=== PATIENT | female | born 1965 | race American Indian/Alaskan Native ===

== ENCOUNTER 2016-10-21 06:59 | Inpatient (IN) | payer MEDICAID ==
[2016-10-10 10:55] VITALS: BMI 56.5
[2016-10-21] MEDS ORDERED: Lactated Ringer's 1,000 ML IV ONE ×2 (09:45→12:00)
[2016-10-21] MEDS ORDERED: ceFAZolin IV 1 gm in Dextrose 100 ML IVPB ONE (09:46)
[2016-10-21] MEDS ORDERED: Bupivacaine HCl 0.25% PF (10 ml) Inj ONE (09:47)
[2016-10-21] MEDS ORDERED: Rocuronium 10 mg/ml (5 ml) ONE (11:04)
[2016-10-21] MEDS ORDERED: Succinylcholine Chloride 20 mg/ml Syr (5 ml) IV ONE (11:04)
[2016-10-21] MEDS ORDERED: Albuterol 0.083% Inhal Sol (2.5 mg/3 mL) UD INH PRN (12:54)
[2016-10-21] MEDS ORDERED: Naloxone 0.4 mg/ml Inj (Adult) IVP PRN (12:56)
[2016-10-21] MEDS ORDERED: Morphine Monoject Barrel PCA 1mg/ml IV PRN (12:56)
[2016-10-21] MEDS ORDERED: Albuterol HFA 90 mcg/actuation (8 g) IH PRN (14:01)
[2016-10-21] MEDS: HYDROmorphone 0.5 mg/0.5 ml ISec IVP PRN ×2 (14:10→15:40)
[2016-10-21] MEDS: Lactated Ringer's 1,000 ML IV SCH ×2 (17:00→22:45)
[2016-10-22 01:29] VITALS: RESP 20
[2016-10-22] MEDS: Lactated Ringer's 1,000 ML IV SCH (02:27)
[2016-10-22 07:41] LABS: LYMPH # 1.4 K/uL (1.0-4.3); MEAN PLATELET VOLUME 8.6 fL (7.2-11.7); MONO # 0.7 K/uL (0.0-0.8)
[2016-10-22 07:44] LABS: CHLORIDE 102 mmol/L (98-107); POTASSIUM 4.1 mmol/L (3.6-5.2); SODIUM 139 mmol/L (132-148)
[2016-10-22 07:46] LABS: GFR AFRICAN-AMERICAN > 60
[2016-10-22 07:47] LABS: ALB/GLOB RATIO 1.1 (1.0-2.1); ALKALINE PHOSPHATASE 75 U/L (38-126); ALT/SGPT 17 U/L (9-52); AST/SGOT 20 U/L (14-36); BILIRUBIN,TOTAL 0.2 mg/dL (0.2-1.3); BLOOD UREA NITROGEN 13 mg/dL (7-17); CALCIUM 8.5 mg/dl (8.6-10.4); CARBON DIOXIDE 24 mmol/L (22-30); GLUCOSE,RANDOM 139 mg/dL (65-105); TOTAL PROTEIN 6.4 g/dL (6.3-8.3)
[2016-10-22 07:51] LABS: BASO % 0.1 % (0.0-2.0); HEMATOCRIT 32.2 % (34.0-47.0); LYMPH % 12.2 % (20.0-40.0); MEAN CELL VOLUME 74.4 fL (81.0-99.0); MEAN CORPUSCULAR HEMOGLOBIN 22.6 pg (27.0-31.0); MEAN CORPUSCULAR HGB CONC 30.4 g/dL (33.0-37.0); MONO % 6.1 % (0.0-10.0); RED CELL DISTRIBUTION WIDTH 20.9 % (11.5-14.5)
[2016-10-22 07:54] LABS: WHITE BLOOD COUNT 11.5 K/uL (4.8-10.8)
[2016-10-22] MEDS ORDERED: Oxycodone/Acetaminophen 5/325 mg Tab PO PRN (08:28)
[2016-10-22] MEDS ORDERED: Morphine 4 MG/ML VIAL IVP PRN (08:29)
[2016-10-22] MEDS ORDERED: Pneumococcal 23-Valent Vaccine IM ONE (10:00)
[2016-10-22] MEDS ORDERED: Enoxaparin 40 mg Syringe SC SCH (10:00)
--- NOTE | 2016-10-22 14:20 | CP.PCM.PN ---
<Nicole Metzger - Last Filed: 10/22/16 14:17> Subjective - Date & Time of Evaluation Date of Evaluation: 10/22/16 Time of Evaluation: 14:17 - Subjective Subjective: Surgery: Dr. Pacheco Patient doing very well today. Pain controlled. Tolerating diet. Denies SOB/CP. Per nursing report, no acute events overnight. Objective - Vital Signs/Intake and Output Vital Signs (last 24 hours): Temp Pulse Resp BP Pulse Ox 97.8 F 74 20 117/72 97 10/22/16 07:30 10/22/16 07:30 10/22/16 07:30 10/22/16 07:30 10/22/16 07:30 Intake and Output: 10/22/16 10/22/16 06:59 18:59 Intake Total 2145 Output Total 450 Balance 1695 - Medications Medications: Current Medications Albuterol (Ventolin Hfa 90 Mcg/Actuation (8 G)) 2 puff IH RQ6 PRN PRN Reason: Shortness of Breath Albuterol Sulfate (Albuterol 0.083% Inhal Yadira (2.5 Mg/3 Ml) Ud) 2.5 mg INH RQ6 PRN PRN Reason: Wheezing Docusate Sodium (Colace) 100 mg PO BID [facility] Last Admin: 10/22/16 10:02 Dose: 100 mg Ferrous Sulfate (Feosol) 325 mg PO BID [facility] Last Admin: 10/22/16 10:02 Dose: 325 mg Heparin Sodium (Porcine) (Heparin) 5,000 units SC Q8 [facility] Last Admin: 10/22/16 14:09 Dose: 5,000 units Cefazolin Sodium 2 gm/ (Dextrose) 50 mls @ 100 mls/hr IVPB ONCE [facility] Last Admin: 10/21/16 15:55 Dose: 50 mls Morphine Sulfate (Morphine) 4 mg IVP Q4 PRN PRN Reason: Pain, severe (8-10) Last Admin: 10/22/16 08:54 Dose: 4 mg Ondansetron HCl (Zofran Inj) 4 mg IVP Q4 PRN PRN Reason: Nausea/Vomiting Oxycodone/Acetaminophen (Percocet 5/325 Mg Tab) 1 tab PO Q4H PRN PRN Reason: Pain, moderate (4-7) Stop: 10/25/16 08:29 Oxycodone/Acetaminophen (Percocet 5/325 Mg Tab) 2 tab PO Q4H PRN PRN Reason: Pain, severe (8-10) Stop: 10/25/16 08:29 - Labs Labs: 10/22/16 07:17 10/22/16 07:17 - Constitutional Appears: Non-toxic, No Acute Distress - Head Exam Head Exam: ATRAUMATIC, NORMOCEPHALIC - Eye Exam Eye Exam: EOMI, Normal appearance - ENT Exam ENT Exam: Mucous Membranes Moist - Respiratory Exam Respiratory Exam: NORMAL BREATHING PATTERN. absent: Respiratory Distress Additional comments: Dressing CDI. 2 [place] drains 70cc and 80cc total output. - Cardiovascular Exam Cardiovascular Exam: REGULAR RHYTHM. absent: Tachycardia - Extremities Exam Extremities Exam: Normal Inspection. absent: Calf Tenderness Assessment and Plan - Assessment and Plan (Free Text) Assessment: 51 y/o F s/p left modified radical mastectomy POD1 Plan: -cont drains -possible d/c home today -patient w/ undefined hypercoagulable state. conversation w/ Heme/Onc physician in [place] this am. States she has not been in office since 2013 but has been taking Pradaxa since evaluation. She primarily sees PCP for management now who plans to transition to Warfarin in the future. -Will have heme/onc evaluate patient while in house to determine appropriate restart of home Pradaxa -would like to hold Pradaxa until 10/23/2016, then resume -cont current managment at this time -d/w Dr. Pacheco [facility] PGY1 <Anup Pacheco - Last Filed: 10/22/16 16:22> Objective - Vital Signs/Intake and Output Vital Signs (last 24 hours): Temp Pulse Resp BP Pulse Ox 97.8 F 72 20 129/87 97 10/22/16 15:28 10/22/16 15:28 10/22/16 15:28 10/22/16 15:28 10/22/16 15:28 Intake and Output: 10/22/16 10/22/16 06:59 18:59 Intake Total 2145 Output Total 450 110 Balance 1695 -110 - Medications Medications: Current Medications Albuterol (Ventolin Hfa 90 Mcg/Actuation (8 G)) 2 puff IH RQ6 PRN PRN Reason: Shortness of Breath Albuterol Sulfate (Albuterol 0.083% Inhal Yadira (2.5 Mg/3 Ml) Ud) 2.5 mg INH RQ6 PRN PRN Reason: Wheezing Docusate Sodium (Colace) 100 mg PO BID [facility] Last Admin: 10/22/16 10:02 Dose: 100 mg Ferrous Sulfate (Feosol) 325 mg PO BID [facility] Last Admin: 10/22/16 10:02 Dose: 325 mg Heparin Sodium (Porcine) (Heparin) 5,000 units SC Q8 [facility] Last Admin: 10/22/16 14:09 Dose: 5,000 units Cefazolin Sodium 2 gm/ (Dextrose) 50 mls @ 100 mls/hr IVPB ONCE [facility] Last Admin: 10/21/16 15:55 Dose: 50 mls Morphine Sulfate (Morphine) 4 mg IVP Q4 PRN PRN Reason: Pain, severe (8-10) Last Admin: 10/22/16 08:54 Dose: 4 mg Ondansetron HCl (Zofran Inj) 4 mg IVP Q4 PRN PRN Reason: Nausea/Vomiting Oxycodone/Acetaminophen (Percocet 5/325 Mg Tab) 1 tab PO Q4H PRN PRN Reason: Pain, moderate (4-7) Stop: 10/25/16 08:29 Oxycodone/Acetaminophen (Percocet 5/325 Mg Tab) 2 tab PO Q4H PRN PRN Reason: Pain, severe (8-10) Stop: 10/25/16 08:29 - Labs Labs: 10/22/16 07:17 10/22/16 07:17 Attending/Attestation - Attestation I have personally seen and examined this patient.: Yes I have fully participated in the care of the patient.: Yes I have reviewed all pertinent clinical information, including history, physical exam and plan: Yes Notes (Text): 10/22/16 16:22 Pt was seen and examined at bedside on 10/22/16 Agree with above note and assessment. DC Plan Hematology consult Plan d.w pt in detail.
--- NOTE | 2016-10-22 16:32 | OP ---
PROCEDURE DATE: 10/21/2016 PREOPERATIVE DIAGNOSES: 1. Left breast cancer with axillary lymphadenopathy. 2. Morbid obesity with weight of 300 pounds. POSTOPERATIVE DIAGNOSES: 1. Left breast cancer with axillary lymphadenopathy. 2. Morbid obesity with weight of 300 pounds. PROCEDURE DONE: 1. Left modified radical mastectomy. 2. Excision of large amount of redundant skin Flaps and reconstruction ANESTHESIA: General endotracheal tube anesthesia. ESTIMATED BLOOD LOSS: Around 200 mL. DRAINS: A large two 19 latvian drain was placed in upper and lower flap. COMPLICATIONS: None. INTRAOPERATIVE FINDINGS: The patient had 2 tumors in the 10 o'clock and 3 o' clock position with axillary lymphadenopathy. Pt has large amount of redundant skin due to extremely large size of breast. INTRAOPERATIVE STEPS: This 51-year-old female was diagnosed with a left breast cancer and patient was consented for the left modified radical mastectomy. Brought to the OR, placed supine on the operating table. After induction of the anesthesia, the left breast and axilla and upper extremity was prepped and draped in the usual sterile fashion and a large elliptical incision was made. Upper and lower flap was created. The thickness of the flap was approximately 8 mm to 1 cm and medially the dissection was done up to the sternum, inferiorly up to the costal margin, superiorly up to the infraclavicular area and laterally up to the latissimus dorsi and the left breast was completely excised with underlying pectoral fascia and sent off the table for the pathology. Due to the extremely large size of the breast as well as the skin flaps, the procedure was divided into 2 steps and now the left axillary dissection was done and left axillary dissection was done. The medial and lateral dissection was done. The latissimus dorsi dissection was carried superiorly and the axillary vein was identified and the clavipectoral fascia was entered and Thoracodorsal bundle and nerve as well as long thoracic nerve was identified and all the fat with large amount of lymph node from the label 1 and label 2 was removed and sent off the table for the pathology. After proper wound irrigation, patient had a redundant large amount of extra skin that was excised and the skin was also sent for the pathology and now, the lateral flap was sutured with the thoracic wall and upper and lower flap was closed in 2 layers, the subQ with 2-0 Vicryl, skin with 4-0 Monocryl and dry sterile dressing was applied. The patient tolerated the procedure well. Count of instrument was good. There was no apparent complication. The drain for the lower flap as well as axilla was placed before closing the wound. The patient was extubated in OR, sent to the postanesthesia care unit in stable condition. Anup Pacheco MD cc: [id number] TT: 10/22/2016 16:32:08 sn MTDD
--- NOTE | 2016-10-22 18:06 | CP.PCM.CON ---
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 I have been asked to comment on the safe timing of her anticoagulation post mastectomy. The patient denies abnormal bleeding and bruising. She reports she has had 4-5 episodes of blood clots in her legs and lungs. There recurrent clots she was told to low INR while on coumadin and underwent IVC filter placement and a switch to Pradaxa. Past medical history: Recurrent venous clotting, breast cancer Past surgical history: left mastectomy Family history: Grandmother on both sides with breast cancer Social history: Denies tobacco, alcohol, and illiic drug use. Allergies: NKA Review of systems: All remaining review of systems including HEENT, cardiovascular, respiratory, gastrointestinal, genitourinary, musculoskeletal, dermatologic, neurologic, and psychiatric are negative unless mentioned in the HPI. Past Patient History - Past Medical History & Family History Past Medical History?: Yes - Past Social History Smoking Status: Never Smoked - CARDIAC Hx Hypertension: Yes Other/Comment: hx dvt to lungs - PULMONARY Hx Respiratory Disorders: Yes (sob on exertion) Hx Bronchitis: Yes Hx Pulmonary Embolism: Yes (2008 2010 2012) - NEUROLOGICAL Hx Neurological Disorder: No - HEENT Hx Cataracts: Yes (right) - RENAL Hx Chronic Kidney Disease: No - ENDOCRINE/METABOLIC Hx Endocrine Disorders: No - HEMATOLOGICAL/ONCOLOGICAL Hx Blood Disorders: Yes Hx Anemia: Yes Hx Cancer: Yes (left breast) - INTEGUMENTARY Hx Dermatological Problems: No - MUSCULOSKELETAL/RHEUMATOLOGICAL Hx Musculoskeletal Disorders: No - GASTROINTESTINAL Hx Gastrointestinal Disorders: No - GENITOURINARY/GYNECOLOGICAL Hx Genitourinary Disorders: No - PSYCHIATRIC Hx Psychophysiologic Disorder: No Hx Substance Use: No - SURGICAL HISTORY Hx Surgeries: Yes Hx Cataract Extraction: Yes Hx Vascular Surgery: Yes (vena cava filter) - ANESTHESIA Hx Anesthesia: Yes Hx Anesthesia Reactions: No Hx Malignant Hyperthermia: No Has any member of the family had a problem w/ anesthesia?: No Meds Home Medications: Home Medication List Medication Instructions Recorded Confirmed Type Dabigatran [Pradaxa] 75 mg PO DAILY #30 cap 10/22/16 Rx Docusate [Colace] 100 mg PO BID #60 cap 10/22/16 Rx oxyCODONE/Acetaminophen [Percocet 1 tab PO Q4H PRN #30 tab 10/22/16 Rx 5/325 mg Tab] Allergies/Adverse Reactions: Allergies Allergy/AdvReac Type Severity Reaction Status Date / Time No Known Allergies Allergy Verified 05/14/16 21:28 - Medications Medications: Current Medications Albuterol (Ventolin Hfa 90 Mcg/Actuation (8 G)) 2 puff IH RQ6 PRN PRN Reason: Shortness of Breath Albuterol Sulfate (Albuterol 0.083% Inhal Yadira (2.5 Mg/3 Ml) Ud) 2.5 mg INH RQ6 PRN PRN Reason: Wheezing Docusate Sodium (Colace) 100 mg PO BID [facility] Last Admin: 10/22/16 18:04 Dose: 100 mg Ferrous Sulfate (Feosol) 325 mg PO BID [facility] Last Admin: 10/22/16 18:04 Dose: 325 mg Heparin Sodium (Porcine) (Heparin) 5,000 units SC Q8 [facility] Last Admin: 10/22/16 14:09 Dose: 5,000 units Cefazolin Sodium 2 gm/ (Dextrose) 50 mls @ 100 mls/hr IVPB ONCE [facility] Last Admin: 10/21/16 15:55 Dose: 50 mls Morphine Sulfate (Morphine) 4 mg IVP Q4 PRN PRN Reason: Pain, severe (8-10) Last Admin: 10/22/16 08:54 Dose: 4 mg Ondansetron HCl (Zofran Inj) 4 mg IVP Q4 PRN PRN Reason: Nausea/Vomiting Oxycodone/Acetaminophen (Percocet 5/325 Mg Tab) 1 tab PO Q4H PRN PRN Reason: Pain, moderate (4-7) Stop: 10/25/16 08:29 Oxycodone/Acetaminophen (Percocet 5/325 Mg Tab) 2 tab PO Q4H PRN PRN Reason: Pain, severe (8-10) Stop: 10/25/16 08:29 Physical Exam - Head Exam Head Exam: ATRAUMATIC - Eye Exam Eye Exam: Normal appearance - ENT Exam ENT Exam: Mucous Membranes Dry - Respiratory Exam Respiratory Exam: NORMAL BREATHING PATTERN - Cardiovascular Exam Cardiovascular Exam: +S1, +S2 - GI/Abdominal Exam GI & Abdominal Exam: Normal Bowel Sounds - Extremities Exam Extremities exam: Positive for: normal inspection Results - Vital Signs Recent Vital Signs: Last Vital Signs Temp 97.8 F 10/22/16 15:28 Pulse 72 10/22/16 15:28 Resp 20 10/22/16 15:28 BP 129/87 10/22/16 15:28 Pulse Ox 97 10/22/16 15:28 - Labs Result Diagrams: 10/22/16 07:17 10/22/16 07:17 Labs: Laboratory Results - last 24 hr 10/22/16 07:17 WBC 11.5 H D RBC 4.32 Hgb 9.8 L Hct 32.2 L MCV 74.4 L MCH 22.6 L MCHC 30.4 L RDW 20.9 H Plt Count 243 MPV 8.6 Neut % (Auto) 81.6 H Lymph % (Auto) 12.2 L [place] % (Auto) 6.1 Eos % (Auto) 0.0 Baso % (Auto) 0.1 Neut # 9.3 H Lymph # 1.4 [place] # 0.7 Eos # 0.0 Baso # 0.0 Sodium 139 Potassium 4.1 Chloride 102 Carbon Dioxide 24 Anion Gap 18 BUN 13 Creatinine 0.6 L Est GFR ( Amer) > 60 Est GFR (Non-Af Amer) > 60 Random Glucose 139 H Calcium 8.5 L Total Bilirubin 0.2 AST 20 ALT 17 Alkaline Phosphatase 75 Total Protein 6.4 Albumin 3.3 L Globulin 3.1 Albumin/Globulin Ratio 1.1 Assessment & Plan (1) History of pulmonary embolism Assessment and Plan: with recurrent DVT has IVC filter recommend prophylactic dosing of anticoagualtion can restart pradaxa 2-3 days after surgery pt will require lifelong anticoagualtion given recurrent venous clotting Status: Acute (2) Anemia Assessment and Plan: will check ferritin, retic count, b12, folate, FOBT to further characterize Status: Acute (3) Breast cancer Assessment and Plan: f/u pathology for determination of adjuvant treatment Thank you for this interesting consult. Status: Acute
[2016-10-22] MEDS: Oxycodone/Acetaminophen 5/325 mg Tab PO PRN (20:53)
[2016-10-23] MEDS: Oxycodone/Acetaminophen 5/325 mg Tab PO PRN ×2 (07:00→17:52)
[2016-10-23 08:33] VITALS: O2SAT 94
[2016-10-23 08:33] LABS: RETIC% 1.7 % (0.5-1.5)
[2016-10-23 09:43] LABS: FOLATE 5.4 ng/mL
[2016-10-23 14:22] LABS: CHLORIDE 100 mmol/L (98-107); SODIUM 141 mmol/L (132-148)
[2016-10-23 14:25] LABS: BLOOD UREA NITROGEN 16 mg/dL (7-17); CARBON DIOXIDE 27 mmol/L (22-30); GFR AFRICAN-AMERICAN > 60; GLUCOSE,RANDOM 112 mg/dL (65-105)
[2016-10-23 14:26] LABS: CALCIUM 8.2 mg/dl (8.6-10.4)
[2016-10-23 14:31] LABS: BASO # 0.1 K/uL (0.0-0.2); BASO % 1.3 % (0.0-2.0); EOS % 0.5 % (0.0-4.0); HEMATOCRIT 31.7 % (34.0-47.0); LYMPH # 3.6 K/uL (1.0-4.3); LYMPH % 40.5 % (20.0-40.0); MEAN CELL VOLUME 74.4 fL (81.0-99.0); MEAN CORPUSCULAR HGB CONC 30.9 g/dL (33.0-37.0); MEAN PLATELET VOLUME 8.8 fL (7.2-11.7); MONO # 0.7 K/uL (0.0-0.8); NRBC % 0.2 % (0.0-2.0); RED CELL DISTRIBUTION WIDTH 20.9 % (11.5-14.5)
--- NOTE | 2016-10-23 14:35 | CP.PCM.CON ---
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 Patient claims to have had vaginal spotting a few days prior to arriving at the hospital for her mastectomy. Upon arrival she was taken off of Pradaxa for surgery and was placed on heparin. She then began having profuse bleeding. Patient states that her periods were regular from her 20s to her 30s but then began to be heavier once she got into her 40s and was on the anticoagulants. Patient at one time was on warfarin and then on xarelto but was ultimately placed on pradaxa. Patient states that her cycle was usually 28-30 days, with 3- 5 day long periods. Patient states that over the last 2 years in particular though her periods have been irregular, with them sometimes being normal for 3 months, then not coming for 2-3 months, then begin regular again for 5 months. Patient admits the last time she had a regular period was about April. Patient otherwise denies lower abdominal/pelvic pain/nausea/vomiting/shortness of breath/chest pain/palpitations. PMHx: HTN PSHx: Cataract surgery 1985, IVC Filter Allergies:NKDA Medications: Ferrous Sulfate Social: Denies alcohol/tobacco/drug use. FHx: FGM Breast cancer, MGM stomach cancer Review of Systems - Constitutional Constitutional: absent: Anorexia, Chills - EENT Eyes: absent: Blind Spots, Blurred Vision Ears: absent: Decreased Hearing, Ear Discharge Nose/Mouth/Throat: absent: Nasal Congestion, Nasal Discharge - Cardiovascular Cardiovascular: absent: Chest Pain, Diaphoresis - Respiratory Respiratory: absent: Cough, Hemoptysis - Gastrointestinal Gastrointestinal: Constipation. absent: Abdominal Pain, Nausea, Vomiting - Genitourinary Genitourinary: absent: Dysuria, Flank Pain - Reproductive: Female Reproductive:Female: Heavy Menses, Spotting Between Cycles - Menstruation Menstruation: Cycle Variable, Menses 1-7 Days, Cycle > 4 Weeks Between - Musculoskeletal Musculoskeletal: absent: Arthralgias, Atrophy - Integumentary Integumentary: absent: Pruritus, Rash - Neurological Neurological: absent: Headaches, Radicular Pain Past Patient History - Past Medical History & Family History Past Medical History?: Yes - Past Social History Smoking Status: Never Smoked Chewing Tobacco Use: No Cigar Use: No Alcohol: None Drugs: Denies - CARDIAC Hx Hypertension: Yes Other/Comment: hx dvt to lungs - PULMONARY Hx Respiratory Disorders: Yes (sob on exertion) Hx Bronchitis: Yes Hx Pulmonary Embolism: Yes (2008 2010 2012) - NEUROLOGICAL Hx Neurological Disorder: No - HEENT Hx Cataracts: Yes (right) - RENAL Hx Chronic Kidney Disease: No - ENDOCRINE/METABOLIC Hx Endocrine Disorders: No - HEMATOLOGICAL/ONCOLOGICAL Hx Blood Disorders: Yes Hx Anemia: Yes Hx Cancer: Yes (left breast) - INTEGUMENTARY Hx Dermatological Problems: No - MUSCULOSKELETAL/RHEUMATOLOGICAL Hx Musculoskeletal Disorders: No - GASTROINTESTINAL Hx Gastrointestinal Disorders: No - GENITOURINARY/GYNECOLOGICAL Hx Genitourinary Disorders: No - PSYCHIATRIC Hx Psychophysiologic Disorder: No Hx Substance Use: No - SURGICAL HISTORY Hx Surgeries: Yes Hx Cataract Extraction: Yes Hx Vascular Surgery: Yes (vena cava filter) - ANESTHESIA Hx Anesthesia: Yes Hx Anesthesia Reactions: No Hx Malignant Hyperthermia: No Has any member of the family had a problem w/ anesthesia?: No Meds Home Medications: Home Medication List Medication Instructions Recorded Confirmed Type Dabigatran [Pradaxa] 75 mg PO DAILY #30 cap 10/22/16 Rx Docusate [Colace] 100 mg PO BID #60 cap 10/22/16 Rx oxyCODONE/Acetaminophen [Percocet 1 tab PO Q4H PRN #30 tab 10/22/16 Rx 5/325 mg Tab] Allergies/Adverse Reactions: Allergies Allergy/AdvReac Type Severity Reaction Status Date / Time No Known Allergies Allergy Verified 05/14/16 21:28 - Medications Medications: Current Medications Albuterol (Ventolin Hfa 90 Mcg/Actuation (8 G)) 2 puff IH RQ6 PRN PRN Reason: Shortness of Breath Albuterol Sulfate (Albuterol 0.083% Inhal Yadira (2.5 Mg/3 Ml) Ud) 2.5 mg INH RQ6 PRN PRN Reason: Wheezing Docusate Sodium (Colace) 100 mg PO BID [facility] Last Admin: 10/23/16 09:29 Dose: 100 mg Ferrous Sulfate (Feosol) 325 mg PO BID [facility] Last Admin: 10/23/16 09:29 Dose: 325 mg Heparin Sodium (Porcine) (Heparin) 5,000 units SC Q8 [facility] Last Admin: 10/22/16 14:09 Dose: 5,000 units Cefazolin Sodium 2 gm/ (Dextrose) 50 mls @ 100 mls/hr IVPB ONCE [facility] Last Admin: 10/21/16 15:55 Dose: 50 mls Morphine Sulfate (Morphine) 4 mg IVP Q4 PRN PRN Reason: Pain, severe (8-10) Last Admin: 10/22/16 08:54 Dose: 4 mg Ondansetron HCl (Zofran Inj) 4 mg IVP Q4 PRN PRN Reason: Nausea/Vomiting Oxycodone/Acetaminophen (Percocet 5/325 Mg Tab) 1 tab PO Q4H PRN PRN Reason: Pain, moderate (4-7) Stop: 10/25/16 08:29 Oxycodone/Acetaminophen (Percocet 5/325 Mg Tab) 2 tab PO Q4H PRN PRN Reason: Pain, severe (8-10) Stop: 10/25/16 08:29 Last Admin: 10/23/16 07:00 Dose: 2 tab Physical Exam - Constitutional Additional comments: obese pleasant female - Head Exam Head Exam: ATRAUMATIC, NORMOCEPHALIC - Eye Exam Eye Exam: EOMI, PERRL Additional comments: right lateral strabismus - ENT Exam ENT Exam: Mucous Membranes Moist, Normal Oropharynx - Neck Exam Neck exam: Positive for: Full Rom. Negative for: Tenderness - Respiratory Exam Respiratory Exam: Clear to Auscultation Bilateral. absent: Rales, Rhonchi, Wheezes - Cardiovascular Exam Cardiovascular Exam: Gallop, RRR, +S1, +S2. absent: Rubs, Systolic Murmur - GI/Abdominal Exam GI & Abdominal Exam: Normal Bowel Sounds, Soft. absent: Distended, Tenderness - Extremities Exam Extremities exam: Positive for: normal capillary refill, pedal edema (+1), pedal pulses present. Negative for: calf tenderness, joint swelling, tenderness - Back Exam Back exam: absent: CVA tenderness (L), CVA tenderness (R), paraspinal tenderness , vertebral tenderness - Neurological Exam Neurological exam: Alert, CN II-XII Intact, Oriented x3 - Skin Skin Exam: Dry, Intact, Warm Results - Vital Signs Recent Vital Signs: Last Vital Signs Temp 97.6 F 10/23/16 08:32 Pulse 58 L 10/23/16 08:32 Resp 20 10/23/16 08:32 BP 121/85 10/23/16 08:32 Pulse Ox 94 L 10/23/16 08:32 - Labs Result Diagrams: 10/23/16 08:16 10/23/16 08:16 Labs: Laboratory Results - last 24 hr 10/23/16 08:16 Retic Count 1.7 H Ferritin 26.8 Vitamin B12 785 Folate 5.4 Assessment & Plan - Assessment and Plan (Free Text) Assessment: 51 year old female with a PMH of multiple DVTs and PEs who is POD #2 from left mastectomy on whom OBGYN was consulted for profuse vaginal bleeding. Plan: Profuse vaginal bleeding Will order transvaginal and pelvis US Will need to be placed back on Pradaxa given her extensive clotting history Patient was previously suggested to get hysterectomy and we discussed this option with patient Will follow ultrasounds Encouraged ambulation Patient was seen and examined and case was discussed in detail with Dr. Beaver. Thank you for allowing us to participate in the care of this interesting patient. - Date & Time Date: 10/23/16 Time: 14:00 <Simone Beaver - Last Filed: 10/23/16 16:58> History of Present Illness - History of Present Illness History of Present Illness: 51 yr admiited to [facility] for left mastectomy. pt c/o irrgular periods from few years. 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 pt was recommded for hystrectomy. pt moved and followed an obgyn in [place] in april. but nothing has mouna done. pt was placed on heparin on pod#0 and started having bleeding. no bleeding now. Pelvic sono 2.3 cm endometrium Meds - Medications Medications: Current Medications Albuterol (Ventolin Hfa 90 Mcg/Actuation (8 G)) 2 puff IH RQ6 PRN PRN Reason: Shortness of Breath Albuterol Sulfate (Albuterol 0.083% Inhal Yadira (2.5 Mg/3 Ml) Ud) 2.5 mg INH RQ6 PRN PRN Reason: Wheezing Dabigatran (Pradaxa) 75 mg PO DAILY [facility] Docusate Sodium (Colace) 100 mg PO BID [facility] Last Admin: 10/23/16 09:29 Dose: 100 mg Ferrous Sulfate (Feosol) 325 mg PO BID [facility] Last Admin: 10/23/16 09:29 Dose: 325 mg Cefazolin Sodium 2 gm/ (Dextrose) 50 mls @ 100 mls/hr IVPB ONCE [facility] Last Admin: 10/21/16 15:55 Dose: 50 mls Morphine Sulfate (Morphine) 4 mg IVP Q4 PRN PRN Reason: Pain, severe (8-10) Last Admin: 10/22/16 08:54 Dose: 4 mg Ondansetron HCl (Zofran Inj) 4 mg IVP Q4 PRN PRN Reason: Nausea/Vomiting Oxycodone/Acetaminophen (Percocet 5/325 Mg Tab) 1 tab PO Q4H PRN PRN Reason: Pain, moderate (4-7) Stop: 10/25/16 08:29 Oxycodone/Acetaminophen (Percocet 5/325 Mg Tab) 2 tab PO Q4H PRN PRN Reason: Pain, severe (8-10) Stop: 10/25/16 08:29 Last Admin: 10/23/16 07:00 Dose: 2 tab Physical Exam - Exam External exam: NORMAL EXTERNAL EXAM Speculum exam: NORMAL SPECULUM EXAM Bimanual exam: NORMAL BIMANUAL EXAM Results - Vital Signs Recent Vital Signs: Last Vital Signs Temp 97.6 F 10/23/16 08:32 Pulse 58 L 10/23/16 08:32 Resp 20 10/23/16 08:32 BP 121/85 10/23/16 08:32 Pulse Ox 94 L 10/23/16 08:32 - Labs Result Diagrams: 10/23/16 08:16 10/23/16 08:16 Labs: Laboratory Results - last 24 hr 10/23/16 08:16 WBC 9.0 RBC 4.26 Hgb 9.8 L Hct 31.7 L MCV 74.4 L MCH 23.0 L MCHC 30.9 L RDW 20.9 H Plt Count 237 MPV 8.8 Neut % (Auto) 49.7 L Lymph % (Auto) 40.5 H [place] % (Auto) 8.0 Eos % (Auto) 0.5 Baso % (Auto) 1.3 Neut # 4.5 Lymph # 3.6 [place] # 0.7 Eos # 0.0 Baso # 0.1 Retic Count 1.7 H Sodium 141 Potassium 4.0 Chloride 100 Carbon Dioxide 27 Anion Gap 18 BUN 16 Creatinine 0.6 L Est GFR ( Amer) > 60 Est GFR (Non-Af Amer) > 60 Random Glucose 112 H Calcium 8.2 L Ferritin 26.8 Vitamin B12 785 Folate 5.4 Assessment & Plan - Assessment and Plan (Free Text) Assessment: 51 yr with irrgular periods/h/o multiple clots/breast cancer s/p mastectomy Plan: no acute obgyn issues. follow up with obgyn as an out pateint. if no obgyn she can follow with Dr Barahona in clinic on friday for possible d&c, hystyerscopy. cont medicine/surgical management . Thank you for consulting - Date & Time Date: 10/23/16 Time: 16:30
--- NOTE | 2016-10-23 16:47 | US ---
HISTORY: profuse vaginal bleeding COMPARISON: Pelvic ultrasound performed 05/14/16 TECHNIQUE: Real-time transabdominal pelvic ultrasound was performed. In addition a transvaginal pelvic ultrasound was necessary to better depict pelvic anatomy FINDINGS: Examination limited by habitus. UTERUS: Measures 15.4 x 8.2 x 8.9 cm. Anteverted. ENDOMETRIUM: Measures 2.3 cm in diameter. CERVIX: Nabothian cyst. RIGHT OVARY: Not well-visualized. LEFT OVARY: Not well-visualized. FREE FLUID: No significant free fluid noted. OTHER FINDINGS: None. IMPRESSION: Enlarged uterus. Thickened endometrium. 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 Bilateral ovaries are not visualized.
[2016-10-23 16:57] VITALS: BP 124/77; PULSE 66; TEMP 97.4
--- NOTE | 2016-10-23 17:12 | PCM.SURG1 ---
Surgeon's Initial Post Op Note - Surgeon's Notes Surgeon: Dr. Pacheco Computer Installation Engineer: Dr. Pinto PGY-2, Haydee AYALA Type of Anesthesia: General Endo Pre-Operative Diagnosis: Left breast cancer w/ axillary lymphadenopathy Operative Findings: see operative report Post-Operative Diagnosis: Left breast cancer w/ axillary lymphadenopathy Operation Performed: Left modified radical mastectomy Specimen/Specimens Removed: left breast, level 1 and 2 axillary lymph nodes Estimated Blood Loss: EBL {In ML}: 200 Blood Products Given: N/A Drains Used: Milton (x2) Post-Op Condition: Fair Date of Surgery/Procedure: 10/21/16 Time of Surgery/Procedure: 09:00
--- NOTE | 2016-10-23 17:20 | CP.PCM.DIS ---
Provider - Provider Date of Admission: 10/21/16 13:56 Attending physician: Anup Pacheco MD Consults: Dr. Perez (hematology/oncology) Dr. Beaver (gynecology) Time Spent in preparation of Discharge (in minutes): 35 Diagnosis - Discharge Diagnosis (1) Breast cancer Status: Resolved Hospital Course - Lab Results Lab Results: Most Recent Lab Values WBC 9.0 K/uL (4.8-10.8) 10/23/16 08:16 RBC 4.26 Mil/uL (3.80-5.20) 10/23/16 08:16 Hgb 9.8 g/dL (11.0-16.0) L 10/23/16 08:16 Hct 31.7 % (34.0-47.0) L 10/23/16 08:16 MCV 74.4 fL (81.0-99.0) L 10/23/16 08:16 MCH 23.0 pg (27.0-31.0) L 10/23/16 08:16 MCHC 30.9 g/dL (33.0-37.0) L 10/23/16 08:16 RDW 20.9 % (11.5-14.5) H 10/23/16 08:16 Plt Count 237 K/uL (130-400) 10/23/16 08:16 MPV 8.8 fL (7.2-11.7) 10/23/16 08:16 Neut % (Auto) 49.7 % (50.0-75.0) L 10/23/16 08:16 Lymph % (Auto) 40.5 % (20.0-40.0) H 10/23/16 08:16 Fergus % (Auto) 8.0 % (0.0-10.0) 10/23/16 08:16 Eos % (Auto) 0.5 % (0.0-4.0) 10/23/16 08:16 Baso % (Auto) 1.3 % (0.0-2.0) 10/23/16 08:16 Neut # 4.5 K/uL (1.8-7.0) 10/23/16 08:16 Lymph # 3.6 K/uL (1.0-4.3) 10/23/16 08:16 Fergus # 0.7 K/uL (0.0-0.8) 10/23/16 08:16 Eos # 0.0 K/uL (0.0-0.7) 10/23/16 08:16 Baso # 0.1 K/uL (0.0-0.2) 10/23/16 08:16 Retic Count 1.7 % (0.5-1.5) H 10/23/16 08:16 Sodium 141 mmol/L (132-148) 10/23/16 08:16 Potassium 4.0 mmol/L (3.6-5.2) 10/23/16 08:16 Chloride 100 mmol/L (98-107) 10/23/16 08:16 Carbon Dioxide 27 mmol/L (22-30) 10/23/16 08:16 Anion Gap 18 (10-20) 10/23/16 08:16 BUN 16 mg/dL (7-17) 10/23/16 08:16 Creatinine 0.6 MG/DL (0.7-1.2) L 10/23/16 08:16 Est GFR ( Amer) > 60 10/23/16 08:16 Est GFR (Non-Af Amer) > 60 10/23/16 08:16 Random Glucose 112 mg/dL (65-105) H 10/23/16 08:16 Calcium 8.2 mg/dl (8.6-10.4) L 10/23/16 08:16 Ferritin 26.8 ng/mL 10/23/16 08:16 Total Bilirubin 0.2 mg/dL (0.2-1.3) 10/22/16 07:17 AST 20 U/L (14-36) 10/22/16 07:17 ALT 17 U/L (9-52) 10/22/16 07:17 Alkaline Phosphatase 75 U/L (38-126) 10/22/16 07:17 Total Protein 6.4 g/dL (6.3-8.3) 10/22/16 07:17 Albumin 3.3 g/dL (3.5-5.0) L 10/22/16 07:17 Globulin 3.1 gm/dL (2.2-3.9) 10/22/16 07:17 Albumin/Globulin Ratio 1.1 (1.0-2.1) 10/22/16 07:17 Vitamin B12 785 pg/mL (239-931) 10/23/16 08:16 Folate 5.4 ng/mL 10/23/16 08:16 - Hospital Course Hospital Course: 51yo F with 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 She presented to same day surgery and had a left modified radical mastectomy on 10/21/16. 2 Uriel drains were left. 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 Patient was placed on heparin and developed vaginal bleeding on POD#1 which resolved that evening. Heparin was held. Hematology/oncology was consulted to determine when best to restart Pradaxa. Dr. Perez recommended restarting pradaxa 2-3 days after surgery and that patient will require lifelong anticoagulation due to recurrent venous clotting. He ordered iron studies for her anemia. Dr. Perez recommended a gynecology consult. Transvaginal and pelvic US was done which showed enlarged uterus and thickened endometrium. Dr. Beaver recommended patient follow up outpatient for possible D&C and hysteroscopy. Patient had previously been recommended to have a hysterectomy by her previous diabetes manager. Discharge Exam - Head Exam Head Exam: ATRAUMATIC, NORMOCEPHALIC - Eye Exam Eye Exam: EOMI, Normal appearance - Respiratory Exam Respiratory Exam: NORMAL BREATHING PATTERN. absent: Respiratory Distress Additional comments: Left chest dressings clean/dry/intact [address] - Cardiovascular Exam Cardiovascular Exam: +S1, +S2 - GI/Abdominal Exam GI & Abdominal Exam: Soft. absent: Distended, Firm, Tenderness - Neurological Exam Neurological exam: Alert, CN II-XII Intact, Oriented x3 - Psychiatric Exam Psychiatric exam: Normal Affect, Normal Mood - Skin Skin Exam: Dry, Normal Color, Warm Discharge Plan - Discharge Medications Prescriptions: Docusate [Colace] 100 mg PO BID #60 cap oxyCODONE/Acetaminophen [Percocet 5/325 mg Tab] 1 tab PO Q4H PRN #30 tab PRN Reason: Pain, Moderate (4-7) Dabigatran [Pradaxa] 75 mg PO DAILY #30 cap - Follow Up Plan Condition: GOOD Disposition: HOME/ ROUTINE Instructions: Dabigatran (By mouth), Pardeep-Ariza Drain Care (DC), Mastectomy (DC) Additional Instructions: Leave dressing in place for 5 days. Keep dry. Then may remove top dressings but keep steri strips in place. They will fall off on their own over time. Follow up with Dr. Pacheco in 1 week. Monitor and record drain output. Empty as needed. He will remove drains in his office. Follow up with your equity director/oncologist. Follow up with your diabetes manager. If patient does not have one, can follow up in clinic with Dr. Barahona. Clinical Quality Measures - Date & Time of Discharge Summary Date of Discharge Summary: 10/23/16 Time of Discharge Summary: 17:27
[2016-10-24 06:57] LABS: HEMATOCRIT 31.7 % (35.0-45.0); HEMOGLOBIN 9.9 g/dL (11.7-15.5)
[2016-10-25 00:44] LABS: HEMOGLOBIN F <1.0 Percent (<2.0)
== END 2016-10-23 19:10 | disposition home or self-care (01) | DRG 257 ==
LOC: C.SDS 06:59 → C.9S 13:56 → C.6T 18:03
PROVIDERS: ADMIT Surgery Surgical Critical Care; ATTEND Surgery Surgical Critical Care
PROC: 07B60ZX Excision of Left Axillary Lymphatic, Open Approach, Diagnostic (ICD-10-PCS; 2016-10-21)
PROC: 0HTU0ZZ Resection of Left Breast, Open Approach (ICD-10-PCS; principal; 2016-10-21 09:00)
DX: C50.812 Malignant neoplasm of overlapping sites of left female breast (principal); C77.3 Secondary and unspecified malignant neoplasm of axilla and upper limb lymph nodes; Z68.43 Body mass index [BMI] 50.0-59.9, adult; E66.01 Morbid (severe) obesity due to excess calories; I10 Essential (primary) hypertension; N92.6 Irregular menstruation, unspecified; R93.8 Abnormal findings on diagnostic imaging of other specified body structures; N85.2 Hypertrophy of uterus; D64.9 Anemia, unspecified; Z86.711 Personal history of pulmonary embolism; Z86.718 Personal history of other venous thrombosis and embolism; Z79.02 Long term (current) use of antithrombotics/antiplatelets; Z98.42 Cataract extraction status, left eye

== ENCOUNTER 2016-11-10 03:57 | Emergency (ER) | payer MEDICAID ==
[2016-11-10 03:57] VITALS: BMI 56.0
[2016-11-10] MEDS ORDERED: Sodium Chloride 0.9% 1,000 ML IV ONE (04:21)
[2016-11-10 04:40] LABS: BASO % 0.3 % (0.0-2.0); EOS # 0.1 K/uL (0.0-0.7); EOS % 0.9 % (0.0-4.0); LYMPH # 1.2 K/uL (1.0-4.3); MEAN CELL VOLUME 75.7 fL (81.0-99.0); MEAN CORPUSCULAR HEMOGLOBIN 23.4 pg (27.0-31.0); MEAN CORPUSCULAR HGB CONC 30.9 g/dL (33.0-37.0); MEAN PLATELET VOLUME 8.1 fL (7.2-11.7); MONO # 0.5 K/uL (0.0-0.8); MONO % 5.1 % (0.0-10.0); RED CELL DISTRIBUTION WIDTH 20.4 % (11.5-14.5); WHITE BLOOD COUNT 9.3 K/uL (4.8-10.8)
--- NOTE | 2016-11-10 04:54 | C.PDOC ---
History Of Present Illness The patient, a 51 y/o female, presents to the ED for evaluation of a cramping, abdominal pain which developed overnight. Patient states she was constipated and took laxatives before going to sleep. Patient also reports feeling short of breath as she was ambulating to the rest room. Patient states she was recently diagnosed with a Urinary Tract Infection and was given prescription for an unknown antibiotic with questionable compliance. She denies fever, chills, nausea, vomiting, chest pain and back pain. Time Seen by Provider: 11/10/16 04:06 Chief Complaint (Nursing): Shortness Of Breath History Per: Patient History/Exam Limitations: no limitations Onset/Duration Of Symptoms: Hrs Current Symptoms Are (Timing): Still Present Quality: "Pain" Current Respiratory Medications: See Home Med List Associated Symptoms: denies: Fever, Chills, Chest Pain Additional History Per: Patient Past Medical History Reviewed: Historical Data, Nursing Documentation, Vital Signs Vital Signs: Last Vital Signs Temp Pulse 73 11/10/16 04:08 Resp 18 11/10/16 04:14 BP 95/69 L 11/10/16 04:08 Pulse Ox 97 11/10/16 06:17 - Medical History PMH: Anemia, Bronchitis, HTN, Pulmonary Embolism (2008) Denies: Chronic Kidney Disease Surgical History: No Surg Hx - [facility] Procedures EXCISION OF LEFT AXILLARY LYMPHATIC, OPEN APPROACH, DIAGN (10/21/16) RESECTION OF LEFT BREAST, OPEN APPROACH (10/21/16) Family History: States: Unknown Family Hx - Social History Hx Tobacco Use: No Hx Alcohol Use: No Hx Substance Use: No - Immunization History Hx Tetanus Toxoid Vaccination: No Hx Influenza Vaccination: No Hx Pneumococcal Vaccination: No Review Of Systems Except As Marked, All Systems Reviewed And Found Negative. Constitutional: Negative for: Fever, Chills Cardiovascular: Negative for: Chest Pain Respiratory: Positive for: Shortness of Breath Gastrointestinal: Positive for: Abdominal Pain, Constipation. Negative for: Nausea, Vomiting Musculoskeletal: Negative for: Back Pain Physical Exam - Physical Exam Appears: Non-toxic, No Acute Distress, Other (morbidly obese ) Skin: Normal Color, Warm, Dry Head: Atraumatic, Normacephalic Eye(s): bilateral: PERRL, EOMI, right: Other (lateral stabismus ), left: Normal Inspection Oral Mucosa: Moist Neck: Normal ROM, Supple Chest: Symmetrical, No Deformity, No Tenderness, Other (+left mastectomy ) Cardiovascular: Rhythm Regular, No Murmur Respiratory: Normal Breath Sounds, No Rales, No Rhonchi, No Wheezing Gastrointestinal/Abdominal: Soft, No Tenderness, No Guarding, No Rebound, Other (+morbidly obese ) Back: Normal Inspection Extremity: Normal ROM, Capillary Refill (less than 2 seconds ), No Swelling, Other (+obese lower extremities b/l. no edema ) Neurological/Psych: Oriented x3, Normal Speech, Normal Cognition Gait: Steady ED Course And Treatment - Laboratory Results Result Diagrams: 11/10/16 04:40 11/10/16 04:40 Lab Interpretation: Abnormal (mild Fe Def anemia, mild elev glu, UA 5 WBC's) ECG: Interpreted By Me ECG Rhythm: Sinus Rhythm ECG Interpretation: Normal Rate From EC (normal axis, no RV strain) O2 Sat by Pulse Oximetry: 97 (on RA) Pulse Ox Interpretation: Normal - Radiology CXR: Interpreted by Me CXR Interpretation: Yes: No Acute Disease Progress Note: labs, CXR, EKG ordered and reviewed. Patient received Toradol IV and IV Fluids. Reevaluation Time: 05:49 Reassessment Condition: Improved Medical Decision Making Medical Decision Making: no active CA with ? mild UTI with only 5 WBC's continue abx prescribed for UTI yesterday chronic pain issues, continue same meds. LOW susp of DVT/PE- though legs obese, no edema, normal O2 Sat and normal EKG no R strain/tachycardia. D-dimer deferred as usually false positively elevated in morbidly obese body habitus. Disposition Doctor Will See Patient In The: Office Counseled Patient/Family Regarding: Studies Performed, Diagnosis - Disposition Referrals: Andrea Du MD [Medical Doctor] - Disposition: HOME/ ROUTINE Disposition Time: 05:51 Condition: GOOD Additional Instructions: continue your antibiotics for the mild UTI Follow-up with Dr. Du as needed. Instructions: Urinary Tract Infection in Women (ED) - Clinical Impression Clinical Impression: Abdominal pain, UTI (urinary tract infection) - Scribe Statement The provider has reviewed the documentation as recorded by the Scribe (Eden Siegel) Provider Attestation: All medical record entries made by the Scribe were at my direction and personally dictated by me. I have reviewed the chart and agree that the record accurately reflects my personal performance of the history, physical exam, medical decision making, and the department course for this patient. I have also personally directed, reviewed, and agree with the discharge instructions and disposition.
[2016-11-10 05:03] LABS: CHLORIDE 104 mmol/L (98-107)
[2016-11-10 05:04] LABS: POTASSIUM 3.9 mmol/L (3.6-5.2); SODIUM 140 mmol/L (132-148)
[2016-11-10 05:06] LABS: AST/SGOT 45 U/L (14-36); BILIRUBIN,TOTAL 0.8 mg/dL (0.2-1.3); CARBON DIOXIDE 24 mmol/L (22-30); GFR AFRICAN-AMERICAN > 60
[2016-11-10 05:07] LABS: ALB/GLOB RATIO 1.1 (1.0-2.1); ALKALINE PHOSPHATASE 113 U/L (38-126); ALT/SGPT 23 U/L (9-52); BLOOD UREA NITROGEN 14 mg/dL (7-17); CALCIUM 8.7 mg/dl (8.6-10.4); GLUCOSE,RANDOM 150 mg/dL (65-105); TOTAL PROTEIN 7.3 g/dL (6.3-8.3)
[2016-11-10 05:44] LABS: RBC URINE 46 /hpf (0-3); URINE BACTERIA RARE (<OCC); URINE BILIRUBIN NEGATIVE (NEGATIVE); URINE BLOOD 3+ (NEGATIVE); URINE COLOR Yellow (YELLOW); URINE GLUCOSE (UA) NORMAL (Normal); URINE KETONE TRACE mg/dL (NEGATIVE); URINE LEUKOCYTE ESTERASE NEG Leu/uL (Negative); URINE PROTEIN 1+ mg/dL (NEGATIVE); URINE UROBILINOGEN NORMAL mg/dL (0.2-1.0); WBC URINE 5 /hpf (0-5)
[2016-11-10 06:18] VITALS: BP 121/84; PULSE 79; RESP 19; TEMP 98; O2SAT 96
--- NOTE | 2016-11-10 09:48 | RAD ---
PROCEDURE: CHEST RADIOGRAPH, 1 VIEW HISTORY: SOB COMPARISON: 3 FINDINGS: LUNGS: Clear. PLEURA: No pneumothorax or pleural fluid seen. CARDIOVASCULAR: Normal. OSSEOUS STRUCTURES: No significant abnormalities. VISUALIZED UPPER ABDOMEN: Normal. OTHER FINDINGS: Surgical clips left axilla IMPRESSION: No active disease.
--- NOTE | 2016-11-10 23:30 | CARD ---
APPROVED REPORT EKG Measurement Heart [id number] <Conclusion> Normal sinus rhythm Voltage criteria for left ventricular hypertrophy Abnormal ECG
== END 2016-11-10 06:18 | disposition home or self-care (01) ==
LOC: C.ER 03:57
DX: R10.9 Unspecified abdominal pain (principal); N39.0 Urinary tract infection, site not specified
CPT/HCPCS: 71010; 80053; 81001; 83880; 84484; 85025; 93005; 96361; 96374; 99284; J1885; J7040